=== PATIENT | male | born 1995 | race Caucasian/White ===

== ENCOUNTER 2024-02-12 12:51 | Emergency (ER) | payer MEDICAID ==
[~2024-02-12] VITALS: Ht 157.5 cm; Wt 81.6 kg
[2024-02-12 12:53] VITALS: TEMP 98.2; O2SAT 95
[2024-02-12 13:40] VITALS: BP 118/74; PULSE 80; RESP 16; O2SAT 99
== END 2024-02-12 13:44 | disposition home or self-care (01) ==
LOC: ER 13:35
DX: F41.9 Anxiety disorder, unspecified (principal); F12.90 Cannabis use, unspecified, uncomplicated
CPT/HCPCS: 93005; 99283